=== PATIENT | male | born 1965 | race Caucasian/White ===

== ENCOUNTER → 2019-09-02 | Outpatient (CLI) | payer OTHER | END | disposition home or self-care (01) | LOC: CFH 10:00 | PROVIDERS: ATTEND Family Medicine | DX: M51.15 Intervertebral disc disorders with radiculopathy, thoracolumbar region (principal); M51.17 Intervertebral disc disorders with radiculopathy, lumbosacral region; M48.05 Spinal stenosis, thoracolumbar region; M48.07 Spinal stenosis, lumbosacral region | CPT/HCPCS: 72148 ==